=== PATIENT | female | born 1960 | race Caucasian/White ===

== ENCOUNTER → 2020-02-09 12:51 | Outpatient (CLI) | payer BC, SELFPAY ==
--- NOTE | ~2020-02-09 | MM_ITS ---
EXAMINATION: MM screening dann BI w leida HISTORY: Screening mammogram, family history of breast cancer in her mother. TECHNIQUE: Craniocaudal and mediolateral oblique 3-D tomosynthesis images were obtained and synthetic 2-D images were generated. CAD analysis was submitted and interpreted. COMPARISON: 11/22/2018 BREAST PARENCHYMAL COMPOSITION: There are scattered areas of fibroglandular density. FINDINGS: There is no evidence of suspicious mass, calcification, or architectural distortion to sugg est malignancy in either breast. There has been no suspicious interval change. IMPRESSION: 1. No mammographic evidence of malignancy. 2. Recommend routine screening mammography in one year. BI-RADS Category 1: Negative Reviewed, dictated and finalized at location A.
== END ==
PROVIDERS: PCP Family Medicine; Visit Provider Family Medicine
DX: Z12.31 Encounter for screening mammogram for malignant neoplasm of breast (principal)
CPT/HCPCS: 77063; 77067

== ENCOUNTER 2023-12-01 00:59 | Day surgery (SDC) | payer OTHER, SELFPAY ==
[2023-11-23 15:07] VITALS: BMI 31.4
--- NOTE | 2023-11-23 15:15 | PC.NURSE ---
Report to the Outpatient Waiting Room, entrance under the green pavilion located off [facility], at time _0700_ on date _12/01/23_. Planned Procedure Time: _0900__. Time changes happen often and if your time is changed the preop area will call you the afternoon before. - You and your visitor will be asked to self-screen and do not enter if you have any COVID symptoms. - A mask is optional within the hospital at this time. Patients may have clear liquids (water, carbonated beverages, clear teas, apple juice) until 3 hours prior to surgery with a maximum of 20 ounces. - No food from midnight until time of surgery - Infants may have breast milk until 4 hours before surgery, formula 6 hours prior to surgery. - Children will be allowed to drink immediately following surgery. If applicable, please bring a bottle or sippy cup to assist with drinking. Juice, water, soda, and popsicles are readily available. For infants on formula, please bring formula the day of surgery. Pacifiers are allowed. Take the following medications with a SIP of water the morning of surgery: _THYROID(PORK), LIOTHYRONINE DO NOT STOP ANY OF YOUR OTHER PRESCRIPTION MEDICATIONS PRIOR TO SURGERY ?EXCEPT THE FOLLOWING Medications to discontinue per physician OZEMPIC Date to take last dose PT HAS STOPPED 2 WEEKS AGO Please no make-up, nail new zealander, hairspray, perfume, deodorant, or body powder the day of surgery. No jewelry (including any body piercings) or valuables the day of surgery, leave them at home. Please take a shower or bath the night before, or the morning of, surgery with an antibacterial soap. Wear comfortable, loose fitting clothing. Children are encouraged to wear pajamas. - Jewelry must be removed prior to entering the operating room. Rings and piercings that are not removed may be cut off. - The hospital will not accept responsibility for valuables. - Please leave all valuables, including medications, at home the day of surgery. If you are going home after surgery, a licensed front end loader driver must drive you home. - NO public transportation without another adult if you receive anesthesia. - We recommend that an adult stay with you for 24 hours following discharge. - We also recommend that you do not drive, make important decision, drink alcoholic beverages, or take any drugs that were not prescribed by your health care provider for at least 24 hours after your discharge time. For Pediatric surgeries, we recommend two adults accompany the child home. Follow any additional instructions given to you from your surgeon. If you or anyone in your household have experienced Covid symptoms in the past week, please notify your surgeon or the nurse liaison at the phone number below for possible testing. Telephone instructions given to __PATIENT__and asked if any additional questions and then verbalized understanding. Patient advised to call surgeon office or pre surgery nurse liaison [phone] if any additional questions.
[2023-12-01] VITALS (11 sets, daily range): BP systolic 140–185; BP diastolic 70–103; PULSE 65–104; RESP 11–20; TEMP 36.3–36.7; O2SAT 97–100
[2023-12-01 07:00] LABS: Urine Cotinine NEGATIVE
[2023-12-01] MEDS: LACTATED RINGERS 1,000 ML 30 ML IV CONT ×3 (07:15→14:26)
--- NOTE | 2023-12-01 08:20 | P.PNAN_ITS ---
Anes - Initial Pre Proc Eval Procedure: Operation Date: 12/01/23 09:00 Proposed Procedures p Bilateral Breast Augmentation, - Tyler Dave MD s Bilateral Breast Mastopexy with Galaflex and Bra Roll Excision - Tyler Dave MD Date/Time: 12/01/23 08:20 Surgeon: Tyler Dave MD Pre Op Diagnosis: breaking ptosis,micromastia, skin laxity Patient Data Age: 63 Gender: F Height: 1.63 m Weight: 81.1 kg Last Vital Signs Temp 98.0 F 12/01/23 07:07 Pulse 65 12/01/23 07:07 Resp 20 12/01/23 07:07 BP 140/88 12/01/23 07:07 Pulse Ox 99 12/01/23 07:07 O2 Del Method Room Air 12/01/23 07:07 Allergies Allergy/AdvReac Type Severity Reaction Status Date / Time No Known Allergies Allergy Verified 12/01/23 07:07 Home Medications Medication Instructions Recorded Confirmed Type atorvastatin 20 mg tablet 20 mg PO DAILY 11/23/23 12/01/23 History liothyronine 5 mcg tablet 5 mcg PO DAILY 11/23/23 12/01/23 History lisinopril 10 mg tablet 10 mg PO BID 11/23/23 12/01/23 History progesterone micronized 200 mg 200 mg PO HS 11/23/23 12/01/23 History capsule semaglutide 0.25 mg or 0.5 mg (2 0.25 mg subcut WEEKLY 11/23/23 12/01/23 History mg/3 mL) subcutaneous pen injector (Ozempic) spironolactone 50 mg tablet 50 mg PO DAILY 11/23/23 12/01/23 History thyroid (pork) 60 mg tablet 60 mg PO DAILY 11/23/23 12/01/23 History ([place] [facility]) Laboratory Tests 12/01/23 06:43 Cotinine Negative Patient hx anesthesia problems: none Family hx anesthesia problems: none Results Review: All pre-operative results and documents have been reviewed as part of the pre- operative evaluation. [facility] Social History Social History Smoking status: Never smoker Alcohol intake: current Drinks per week: 2 Living arrangements: with family Anes - Eval Final PreProcedure Day of Procedure 12/01/23 08:20 Patient weight: normal Heart: regular rate and rhythm Lungs: clear to auscultation Airway: Mallampati scale class II Neurological: alert and oriented Last oral intake: >/= 8 hours ASA classification: II Emergent: no Anesthetic plan: proceed Anesthesia type and monitoring: general ETT and standard monitoring Results Review: All pre-operative results and documents have been reviewed as part of the pre- operative evaluation. HTN, hyperlipidemia. Informed Consent: The patient's anesthetic plan and its attendant risks and benefits were discussed with the patient/family/POA. Questions were solicited and answers provided to the satisfaction of the patient/family/POA.
--- NOTE | 2023-12-01 08:35 | WPDHPUPDATE1 ---
History and Physical Update Update Date/Time: 12/01/23 08:35 History and Physical has been reviewed, including an updated exam of the patient. There are NO changes in the patient's condition. Risks, benefits, and alternatives have been discussed and questions answered. Patient agrees to proceed with procedure.
--- NOTE | 2023-12-01 08:38 | W.PM.PROC2 ---
Procedure Note - Detailed Date of Procedure 12/01/23 Pre-op Diagnosis breaking ptosis,micromastia, skin laxity Post-op Diagnosis Same Procedure Performed Bilateral augmentation mastopexy with Galaflex Bra roll excision Surgeon Tyler Dave MD Anesthesia General Findings Inverted T Superior medial pedicle Bilateral Luis Miguel Smith SoftTouch 490cc Right - REF# [id number] SN [id number] Left - REF# [id number] SN [id number] Lipoaspirate:1,650 cc total volume all areas Back: 1200 cc Lateral breast / chest: 450 cc Back tissue 535 grams Description of Procedure She is here today for the above. Previously and again today the risks, benefits, alternatives were discussed in extensive detail. I wanted her to be very realistic about the risks involved as well as expectations. We discussed aftercare and what to monitor for. Made sure answered all of her questions to her satisfaction today and consent was obtained. Marked in the preoperative holding area with their verification. The patient was taken to the operating room. Anesthesia was provided by anesthesiology. Placed prone on the operating room table with care taking to protect patient from injury. Posterior A surgical time-out was taken. She was prepped and draped in a standard sterile fashion. Stab incisions were made and I infiltrated with a tumescent solution. Once adequate time for hemostasis suction lipectomy was completed based on S.A.F.E. technique utilizing a 5mm basket cannula and a 3mm jazmín. This was based on preoperative planning, intraoperative observation, and rolling pinch test. A 10 blade was used to make the upper bra roll incision. Elevated inferiorly just as necessary for resection. Once I verified the tissue to be removed a 10 blade was used to make the lower incision and tissue removed. 2-0 Vicryl pop-offs used to place a 3 point suture. This is followed by 2-0 Quill, 3-0 Stratafix, running subcuticular 4-0 Monocryl, and tissue glue. Dressings placed. Breast Patient was then transferred supine with care taken to protect from injury. A surgical time-out was taken. She was prepped and draped in a standard sterile fashion. Stab incisions made an infiltrated with low volume tumescent as a field block. Tegaderm nipple [place] were placed. A 15 blade used to make an incision just superior to the inframammary fold leaving a cusp of de-epithelized tissue at the t junction. Dissection was continued until the chest wall as identified. I incised the pectoralis major along its inferior border and completely released the inferior border leaving the medial border intact. I created a subpectoral pocket in the appropriate dimensions based on our preoperative planning for the implant. I then copiously irrigated with saline solution and verified a strict hemostasis. Next the use a triple antibiotic and Betadine containing solution to irrigate the pocket. I washed my gloves with the triple antibiotic and Betadine solution. We washed the implant immediately upon opening it with this solution and only opened it when we needed it. I used implant funnel and no-touch technique. The implant was introduced into the pocket using the funnel. Having verified positioning of the implant this was closed using 2-0 PDS. I tailor tacked the breast into position. Placed her in a sitting position. Verified the nipple-areolar location based on preoperative planning as well as intraoperative observations and measurements in full agreement. She was placed supine. I de-epithelialized the pedicle. I then removed the inferior central portion of the breast need making sure the implant was well protected. I elevated medial and lateral tissue flaps as well for planned closure. Galaflex as soaking in a Betadine solution. Trimmed and sutured into place with 2-0 Vicryl. Breast tacked into position. Suction lipectomy completed again based on S.A.F.E. technique supine and while sitting with 5-0 Ba
[2023-12-01] MEDS: NACL 0.9% IRRIG POUR BOTTLE 900 ML, GENTAMICIN SULFATE INJ 160 MG, ceFAZolin 2 GM, POVI... IRRIGATION (08:48)
[2023-12-01] MEDS: TRANEXAMIC ACID 1,000MG/ISO100 1,000 MG/100 ML BAG 200 MG IVPB (08:48)
[2023-12-01] MEDS: ceFAZolin 2 GM/D5W 50 ML 2 GM/50 ML BAG IVPB (08:48)
[2023-12-01] MEDS: LACTATED RINGERS IRRIG 1,000 ML, LIDOCAINE HCL 1% LOCAL INJ 50 ML, EPINEPHrine HCL INJ ... INFILTRATE (08:48)
[2023-12-01] MEDS: ceFAZolin SODIUM 1 GM VIAL 2 GM IV PUSH (12:45)
[2023-12-01] MEDS: ALBUTEROL SULFATE NEB 2.5 MG/3 ML INH INHALATION (14:48)
[2023-12-01] MEDS: hydrALAZINE HCL 20 MG/ML VIAL 5 MG IV PUSH ×2 (15:20→15:37)
== END 2023-12-01 16:50 | disposition home or self-care (01) ==
PROVIDERS: PCP Family Medicine; Visit Provider Surgery Plastic and Reconstructive Surgery
PROC: (CPT 19325; principal; 2023-12-01 09:00)
PROC: (CPT 19316; 2023-12-01 09:00)
DX: Z41.1 Encounter for cosmetic surgery (principal); N64.81 Ptosis of breast; L57.4 Cutis laxa senilis; N64.82 Hypoplasia of breast; I10 Essential (primary) hypertension; E78.00 Pure hypercholesterolemia, unspecified; E07.9 Disorder of thyroid, unspecified; Z79.85 Long-term (current) use of injectable non-insulin antidiabetic drugs; Z98.890 Other specified postprocedural states
CPT/HCPCS: 19325; 19316; 15877; 15777 ×2; 80307; J0171; J0330; J0360; J0690; J1100; J1170; J1580; J2250; J2405; J2704; J3010; J7030; J7120